=== PATIENT | male | born 2000 | race Caucasian/White ===

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

== ENCOUNTER 2018-06-25 04:55 | Emergency (ER) | payer OTHER ==
[~2018-06-25] VITALS: Ht 177.8 cm; Wt 77.3 kg
[2018-06-25 05:55] VITALS: BP 131/67
== END 2018-06-25 06:11 | disposition home or self-care (01) ==
LOC: EMS 04:55
DX: S43.004A Unspecified dislocation of right shoulder joint, initial encounter (principal); X50.0XXA Overexertion from strenuous movement or load, initial encounter; Y93.89 Activity, other specified; Y92.89 Other specified places as the place of occurrence of the external cause; Y99.8 Other external cause status
CPT/HCPCS: 23650

== ENCOUNTER 2019-05-27 21:33 | Emergency (ER) | payer OTHER ==
[~2019-05-27] VITALS: Ht 177.8 cm; Wt 72.7 kg
[2019-05-27 23:18] VITALS: BP 141/83
[2019-05-27] MEDS ORDERED: KETOROLAC TROMETHAMINE 30 MG/ML VIAL IM ONE (23:30)
== END 2019-05-28 01:09 | disposition left against medical advice (07) ==
LOC: EMS 21:33
DX: S43.014A Anterior dislocation of right humerus, initial encounter (principal); F17.210 Nicotine dependence, cigarettes, uncomplicated; X58.XXXA Exposure to other specified factors, initial encounter; Y93.89 Activity, other specified; Y92.89 Other specified places as the place of occurrence of the external cause; Y99.8 Other external cause status
CPT/HCPCS: 23650; 73030; 99284; J1885

== ENCOUNTER 2023-04-18 07:30 | Emergency (ER) | payer OTHER ==
[~2023-04-18] VITALS: Ht 175.3 cm; Wt 81.8 kg
[2023-04-18 07:31] VITALS: TEMP 98.3
[2023-04-18] MEDS ORDERED: IBUPROFEN 600 MG TABLET PO ONE (07:45)
[2023-04-18] MEDS ORDERED: IBUP-1492 PO (08:23)
[2023-04-18 08:40] VITALS: BP 130/56; PULSE 72; RESP 18
== END 2023-04-18 08:54 | disposition home or self-care (01) ==
LOC: EMS 07:49
DX: S93.402A Sprain of unspecified ligament of left ankle, initial encounter (principal); F17.210 Nicotine dependence, cigarettes, uncomplicated; X50.1XXA Overexertion from prolonged static or awkward postures, initial encounter; Y93.01 Activity, walking, marching and hiking; Y92.89 Other specified places as the place of occurrence of the external cause; Y99.8 Other external cause status
CPT/HCPCS: 99283

== ENCOUNTER 2023-11-27 20:14 | Emergency (ER) | payer OTHER ==
[~2023-11-27] VITALS: Ht 175.3 cm; Wt 90.9 kg
[~2023-11-27 20:14] MED LIST: IBUP-1492 PO
[2023-11-27 20:27] VITALS: BP 141/77; PULSE 65; RESP 18; TEMP 98.4
[2023-11-27] MEDS ORDERED: IBUP-1492 PO (22:27)
[2023-11-27] MEDS: IBUPROFEN 600 MG TABLET PO ONE (22:38)
== END 2023-11-28 00:25 | disposition home or self-care (01) ==
LOC: EMS 20:15
DX: S83.92XA Sprain of unspecified site of left knee, initial encounter (principal); F20.9 Schizophrenia, unspecified; F17.210 Nicotine dependence, cigarettes, uncomplicated; X58.XXXA Exposure to other specified factors, initial encounter; Y93.89 Activity, other specified; Y92.89 Other specified places as the place of occurrence of the external cause; Y99.8 Other external cause status
CPT/HCPCS: 99283

== ENCOUNTER 2025-02-23 02:21 | Emergency (ER) | payer OTHER ==
[~2025-02-23] VITALS: Ht 175.3 cm; Wt 93.2 kg
[2025-02-23 02:40] VITALS: TEMP 97.9
[2025-02-23 02:56] VITALS: BP 144/92; PULSE 77; RESP 16; O2SAT 100
== END 2025-02-23 04:02 | disposition home or self-care (01) ==
LOC: EMS 02:21
DX: F41.9 Anxiety disorder, unspecified (principal); F15.10 Other stimulant abuse, uncomplicated; G47.00 Insomnia, unspecified; F20.9 Schizophrenia, unspecified; F17.210 Nicotine dependence, cigarettes, uncomplicated; Z98.890 Other specified postprocedural states; Z79.899 Other long term (current) drug therapy
CPT/HCPCS: 99283

== ENCOUNTER 2025-03-11 21:13 | Emergency (ER) | payer OTHER ==
[~2025-03-11] VITALS: Ht 175.3 cm; Wt 109.1 kg
[2025-03-11 21:59] VITALS: BP 128/74; PULSE 79; RESP 15; TEMP 97.9; O2SAT 96
[2025-03-11 22:12] LABS: COVID AG,FIA SOURCE NASAL SWAB
[2025-03-11 22:33] LABS: INFLUENZA TYPE A NEGATIVE FOR TYPE A (NEGATIVE); INFLUENZA TYPE B NEGATIVE FOR TYPE B (NEGATIVE); SARS-COV2 (COVID) ANTIGEN,FIA Negative (Negative)
[2025-03-11 23:03] LABS: RAPID GROUP A STREP NEGATIVE (NEGATIVE)
[2025-03-12 03:36] LABS: PLATELET COUNT (AUTO) 318 K/uL (150-450); RED BLOOD CELL COUNT(AUTO) 5.32 MIL/uL (4.50-5.90); RED CELL DISTRIBUTION WIDTH 13.6 % (11.5-14.5); WHITE BLOOD COUNT (AUTO) 7.1 K/uL (4.5-11.0)
[2025-03-12 03:42] LABS: CALCIUM, TOTAL 8.3 mg/dL (8.8-10.5); CREATININE 0.81 mg/dL (0.60-1.30); GLOMERULAR FILTR. RATE CALC > 60 mL/min (>60); GLUCOSE,RANDOM 96 mg/dL (70-110); SODIUM SERUM 135 mmol/L (136-145); UREA NITROGEN, BLOOD 19 mg/dL (7-18)
[2025-03-12] MEDS: FAMOTIDINE 20 MG/2 ML VIAL IVP ONE (03:46)
[2025-03-12] MEDS: SODIUM CHLORIDE 0.9% 1,000 ML IV ONE (03:46)
[2025-03-12 03:47] LABS: ASPARTATE AMINOTRANSFERASE 32.0 U/L (15-37); TOTAL PROTEIN, SERUM 7.2 g/dL (6.4-8.2)
[2025-03-12] MEDS: PB/HYOSCY/ATR/SCOP/LIDO/MAALOX 55 ML BOTTLE PO ONE (03:47)
[2025-03-12] MEDS ORDERED: FAMO20 PO (04:26)
== END 2025-03-12 05:30 | disposition home or self-care (01) ==
LOC: EMS 21:13
DX: K29.20 Alcoholic gastritis without bleeding (principal); R10.13 Epigastric pain; R07.0 Pain in throat; F20.9 Schizophrenia, unspecified; F17.210 Nicotine dependence, cigarettes, uncomplicated; F15.90 Other stimulant use, unspecified, uncomplicated; Z79.899 Other long term (current) drug therapy; Z98.890 Other specified postprocedural states; Z20.822 Contact with and (suspected) exposure to COVID-19
CPT/HCPCS: 99283; 87426; 80048; 80076; 83690; 85025; 87430; 87804; 96374; 96361; G0480; J3490; J7030